=== PATIENT | male | born 1955 | race African-American/Black ===

== ENCOUNTER 2017-03-17 11:33 | Inpatient (IN) ==
[2017-03-17] MEDS ORDERED: hydrALAZINE 20 MG/1 ML VIAL IV STA ×2 (12:37→14:11)
[2017-03-17] MEDS ORDERED: METOPROLOL TARTRATE 5 MG/5 ML VIAL IV STA (12:37)
[2017-03-17] MEDS ORDERED: METOPROLOL TARTRATE 5 MG/5 ML VIAL IV ONE (13:22)
[2017-03-17] MEDS ORDERED: hydrALAZINE 20 MG/1 ML VIAL ONE (13:22)
[2017-03-17 13:47] LABS: Basophils % 0.1 % (0.0-0.8); Eosinophils # 0.1 10*3/uL (0.0-0.87); Hematocrit 34.3 VOL% (42.0-52.0); Hemoglobin 11.6 GM/DL (14.0-18.0); Immature Granulocytes % 0.4 %; Immature Granulocytes Absolute 0.03 #; Lymphocytes # 0.7 10*3/uL (1.4-4.0); Lymphocytes % 9.1 % (21.2-54.2); Mean Corpuscular HGB Conc 33.8 GM/DL (32-36); Mean Corpuscular Hemoglobin 32 PG (27-34); Mean Corpuscular Volume 94.5 FL (87-102); Monocytes # 1.1 10*3/uL (0.11-0.8); Monocytes % 15.3 % (1.7-12.7); Neutrophils # 5.3 10*3/uL (1.4-7.4); Neutrophils % 74.1 % (38.7-73.9); Platelet Count 240 T/CUMM (130-400); Red Blood Count 3.63 MC/CUMM (3.8-5.5); Red Cell Distribution Width 13.8 % (9.3-17.3); White Blood Count 7.2 T/CUMM (4-12)
[2017-03-17 14:11] LABS: Albumin 3.4 G/DL (3.4-5.0); Bilirubin,Total 0.5 MG/DL (0.2-1.0); Calcium 9.1 MG/DL (8.5-10.1); Osmolality,Calculated 270.8 MOS/KG (273-304); Potassium 3.9 MMOL/L (3.5-5.1); Total Protein 8.1 G/DL (6.4-8.3)
[2017-03-17] MEDS ORDERED: HYDROmorphone 2 MG/1 ML VIAL IV STA (16:32)
[2017-03-17] MEDS ORDERED: HYDROmorphone 2 MG/1 ML VIAL ONE (16:38)
[2017-03-17] MEDS ORDERED: niCARdipine 25 MG/10 ML VIAL IV ONE (16:38)
[2017-03-17] MEDS: niCARdipine INJ 25 MG in SODIUM CHLORIDE 0.9% 240 ML IV SCH ×2 (16:48→22:22)
[2017-03-17] MEDS ORDERED: BISACODYL 5 MG TABLET PO PRN (18:37)
[2017-03-17] MEDS ORDERED: ACETAMINOPHEN 325 MG TABLET PO PRN (18:37)
[2017-03-17] MEDS ORDERED: LACTULOSE 20 GM/30 ML UDCUP PO PRN (18:37)
[2017-03-17] MEDS ORDERED: ZALEPLON 5 MG CAPSULE PO PRN (18:37)
[2017-03-17] MEDS ORDERED: niCARdipine INJ 25 MG in SODIUM CHLORIDE 0.9% 240 ML IV SCH (18:37)
[2017-03-17] MEDS: THIAMINE 100 MG TABLET PO SCH (18:55)
[2017-03-17] MEDS: FOLIC ACID 1 MG TABLET PO SCH (18:55)
[2017-03-17] MEDS: amLODIPine 10 MG TABLET PO SCH (18:55)
[2017-03-17 19:07] LABS: PT Patient Result 10.2 SECS; Partial Thromboplastin Time 31.8 SECS (0-40)
[2017-03-17] MEDS: CARVEDILOL 12.5 MG TABLET PO SCH (20:28)
[2017-03-17] MEDS: ENOXAPARIN 40 MG/0.4 ML SYRINGE SUBCUT SCH (20:28)
[2017-03-17] MEDS: NICOTINE 21 MG/24 HR PATCH TRANSDERM SCH (20:29)
[2017-03-18] MEDS: THIAMINE 100 MG TABLET PO SCH (08:24)
[2017-03-18] MEDS: CARVEDILOL 12.5 MG TABLET PO SCH (08:24)
[2017-03-18] MEDS: amLODIPine 10 MG TABLET PO SCH (08:24)
[2017-03-18] MEDS: PANTOPRAZOLE 40 MG TABLET PO SCH (08:24)
[2017-03-18] MEDS: FOLIC ACID 1 MG TABLET PO SCH (08:25)
[2017-03-18] MEDS ORDERED: hydrALAZINE 20 MG/1 ML VIAL IV PRN (08:46)
[2017-03-18] MEDS: CYCLOBENZAPRINE 10 MG TABLET PO PRN ×2 (08:59→20:12)
[2017-03-18] MEDS ORDERED: CARVEDILOL 12.5 MG TABLET PO ONE (09:00)
[2017-03-18] MEDS: CARVEDILOL 25 MG TABLET PO SCH ×2 (12:00→20:13)
[2017-03-18] MEDS: ENOXAPARIN 40 MG/0.4 ML SYRINGE SUBCUT SCH (20:13)
[2017-03-18] MEDS: NICOTINE 21 MG/24 HR PATCH TRANSDERM SCH (20:15)
[2017-03-18 22:24] LABS: Apearance,Urine CLEAR (Clear); Bilirubin,Urine Negative (Negative); Blood, Urine Moderate mg/dL (Negative); Glucose,Urine (UA) Negative (Negative); Hyaline Casts,Urine 2 /LPF (0-3); Ketones,Urine Negative (Negative); Mucus,Urine Occasional /LPF (Occasional); Nitrite,Urine Negative (Negative); Protein,Urine Negative; RBC,Urine 2 /HPF (0-4); Squamous Epithelial Cell,Urine Occasional /HPF (0-10); Urine Color Yellow (Yellow); Urine Specific Gravity 1.024 (1.001-1.035); WBC,Urine 1 /HPF (0-6)
[2017-03-19] MEDS: THIAMINE 100 MG TABLET PO SCH (08:55)
[2017-03-19] MEDS: PANTOPRAZOLE 40 MG TABLET PO SCH (08:55)
[2017-03-19] MEDS: amLODIPine 10 MG TABLET PO SCH (08:55)
[2017-03-19] MEDS: CARVEDILOL 25 MG TABLET PO SCH (08:55)
[2017-03-19] MEDS: FOLIC ACID 1 MG TABLET PO SCH (08:55)
[2017-03-19] MEDS: CYCLOBENZAPRINE 10 MG TABLET PO PRN (08:55)
[2017-03-19] MEDS ORDERED: CYCLOBENZAPRINE 10 MG TABLET PO SCH (15:00)
[2017-03-19 16:57] VITALS: BP 154/85
== END 2017-03-19 17:00 | disposition home or self-care (01) | DRG 305 ==
LOC: N.ED 11:33 → N.EDINP 15:30 → N.CC 18:30 → N.4E 03-18 15:05
PROVIDERS: ADMIT Internal Medicine; ATTEND Internal Medicine

== ENCOUNTER 2021-01-19 10:16 | Inpatient (IN) ==
[2021-01-19] MEDS ORDERED: cefTRIAXone 1,000 MG in SODIUM CHLORIDE 0.9% 100 ML IV STA (10:46)
[2021-01-19 10:52] LABS: Basophils % 0.2 % (0.0-0.8); Eosinophils % 0.1 % (0.00-10.9); Hemoglobin 13.8 GM/DL (14.0-18.0); Immature Granulocytes % 1.3 %; Immature Granulocytes Absolute 0.22 #; Lymphocytes # 0.5 10*3/uL (1.4-4.0); Mean Corpuscular HGB Conc 32.1 GM/DL (32-36); Mean Corpuscular Volume 96.2 FL (87-102); Mean Platelet Volume 11.2 FL (9.6-12.0); Monocytes % 14.4 % (1.7-12.7); Platelet Count 347 T/CUMM (130-400); Red Blood Count 4.47 MC/CUMM (3.8-5.5); Red Cell Distribution Width 13.5 % (9.3-17.3); White Blood Count 16.8 T/CUMM (4-12)
[2021-01-19 11:14] LABS: Band Neutrophils 2 % (0-10); Lymphocytes 1 % (20-55); Platelet Estimate Adequate; Segmented Neutrophils 80 % (50-85); Total Cells Counted 100
[2021-01-19] MEDS ORDERED: SODIUM CHLORIDE 0.9% 1,100 ML IV ONE (12:07)
[2021-01-19] MEDS ORDERED: DEXTROSE 50% 25 GM/50 ML VIAL IV PRN (12:19)
[2021-01-19] MEDS ORDERED: GLUCAGON 1 MG VIAL IM PRN (12:19)
[2021-01-19] MEDS ORDERED: DOCUSATE SODIUM 100 MG CAPSULE PO PRN (12:19)
[2021-01-19] MEDS ORDERED: ONDANSETRON 4 MG/2 ML VIAL IV PRN (12:19)
[2021-01-19] MEDS ORDERED: LACTULOSE 20 GM/30 ML UDCUP PO PRN (12:19)
[2021-01-19 12:30] LABS: Alanine Aminotransferase 28 U/L (16-61); Albumin 2.2 G/DL (3.4-5.0); Alkaline Phosphatase 133 U/L (45-117); Aspartate Amino Transferase 37 U/L (0-37); Blood Urea Nitrogen 95 MG/DL (7-18); Calcium 10.3 MG/DL (8.5-10.1); Carbon Dioxide 21 MMOL/L (21-32); Estimated Glom Filtration Rate 26 ML/MIN; Ferritin 2619.6 ng/mL (26-388); Glucose 212 MG/DL (74-106); Osmolality,Calculated 304.1 MOS/KG (273-304); Potassium 4.3 MMOL/L (3.5-5.1); Sodium 135 MMOL/L (136-145); Total Protein 10.2 G/DL (6.4-8.2)
[2021-01-19] MEDS: AZITHROMYCIN INJ 500 MG in SODIUM CHLORIDE 0.9% 250 ML IV SCH (12:42)
[2021-01-19] MEDS ORDERED: ALBUTEROL/IPRATROPIUM 3 ML NEB RESP TX SCH (13:00)
[2021-01-19] MEDS: DEXTROSE 5% NACL 0.45% 1,000 ML IV SCH (14:40)
[2021-01-19] MEDS: DEXAMETHASONE 10 MG/1 ML VIAL IV SCH (16:00)
[2021-01-19] MEDS: BUDESONIDE/FORMOTEROL 160-4.5 INHALER 6 GM INH SCH ×2 (16:00→22:00)
[2021-01-19] MEDS: PANTOPRAZOLE 40 MG VIAL IV SCH (16:02)
[2021-01-19] MEDS ORDERED: LORazepam 2 MG/1 ML VIAL IV PRN (20:53)
[2021-01-19] MEDS: carvediloL 25 MG TABLET PO SCH (23:45)
[2021-01-20] MEDS: NICOTINE 21 MG/24 HR PATCH TRANSDERM SCH ×2 (00:39→08:41)
[2021-01-20] MEDS: DEXTROSE 5% NACL 0.45% 1,000 ML IV SCH ×3 (04:00→16:29)
[2021-01-20 06:02] LABS: Basophils % 0.3 % (0.0-0.8); Hematocrit 39.6 VOL% (42.0-52.0); Hemoglobin 12.9 GM/DL (14.0-18.0); Immature Granulocytes % 0.9 %; Immature Granulocytes Absolute 0.13 #; Lymphocytes # 0.4 10*3/uL (1.4-4.0); Lymphocytes % 2.5 % (21.2-54.2); Mean Corpuscular HGB Conc 32.6 GM/DL (32-36); Mean Corpuscular Volume 96.1 FL (87-102); Mean Platelet Volume 11.7 FL (9.6-12.0); Monocytes % 11.5 % (1.7-12.7); Neutrophils % 84.8 % (38.7-73.9); Platelet Count 322 T/CUMM (130-400); Red Blood Count 4.12 MC/CUMM (3.8-5.5); Red Cell Distribution Width 13.7 % (9.3-17.3); White Blood Count 14.5 T/CUMM (4-12)
[2021-01-20 06:23] LABS: Calcium 10.1 MG/DL (8.5-10.1); Osmolality,Calculated 306.5 MOS/KG (273-304); Potassium 4.9 MMOL/L (3.5-5.1)
[2021-01-20 06:32] LABS: Band Neutrophils 5 % (0-10); Lymphocytes 6 % (20-55); Platelet Estimate Adequate; Segmented Neutrophils 85 % (50-85); Total Cells Counted 100
[2021-01-20 06:42] LABS: Ferritin 2601.6 ng/mL (26-388)
[2021-01-20] MEDS: RIVAROXABAN 20 MG TABLET PO SCH ×2 (06:53→16:29)
[2021-01-20] MEDS: LEVOFLOXACIN INJ 500 MG/100 ML PREMIX IV SCH ×2 (07:08→09:16)
[2021-01-20] MEDS: DEXAMETHASONE 10 MG/1 ML VIAL IV SCH (08:40)
[2021-01-20] MEDS: carvediloL 25 MG TABLET PO SCH ×2 (08:40→21:26)
[2021-01-20] MEDS: PANTOPRAZOLE 40 MG VIAL IV SCH (08:40)
[2021-01-20] MEDS: BUDESONIDE/FORMOTEROL 160-4.5 INHALER 6 GM INH SCH ×2 (08:41→21:26)
[2021-01-20] MEDS: LORATADINE 10 MG TABLET PO SCH (08:41)
[2021-01-20] MEDS ORDERED: chlordiazePOXIDE 10 MG CAPSULE PO SCH (09:37)
[2021-01-20] MEDS: THIAMINE 100 MG TABLET PO SCH (10:31)
[2021-01-20] MEDS: FOLIC ACID 1 MG TABLET PO SCH (10:31)
[2021-01-20] MEDS: AZITHROMYCIN INJ 500 MG in SODIUM CHLORIDE 0.9% 250 ML IV SCH (13:14)
[2021-01-20] MEDS: chlordiazePOXIDE 25 MG CAPSULE PO SCH ×3 (13:15→21:26)
[2021-01-20] MEDS: CLINDAMYCIN INJ 600 MG/50 ML PREMIX IV SCH (16:29)
[2021-01-21] MEDS: CLINDAMYCIN INJ 600 MG/50 ML PREMIX IV SCH ×3 (00:15→16:44)
[2021-01-21] MEDS: DEXTROSE 5% NACL 0.45% 1,000 ML IV SCH ×2 (04:00→23:30)
[2021-01-21] MEDS: AZITHROMYCIN 250 MG TABLET PO SCH (10:04)
[2021-01-21] MEDS: THIAMINE 100 MG TABLET PO SCH (10:05)
[2021-01-21] MEDS: FOLIC ACID 1 MG TABLET PO SCH (10:05)
[2021-01-21] MEDS: LORATADINE 10 MG TABLET PO SCH (10:05)
[2021-01-21] MEDS: chlordiazePOXIDE 25 MG CAPSULE PO SCH ×2 (10:05→21:13)
[2021-01-21] MEDS: LEVOFLOXACIN 500 MG TABLET PO SCH (10:05)
[2021-01-21] MEDS: carvediloL 25 MG TABLET PO SCH ×2 (10:06→21:12)
[2021-01-21] MEDS: NICOTINE 21 MG/24 HR PATCH TRANSDERM SCH (10:06)
[2021-01-21] MEDS: DEXAMETHASONE 10 MG/1 ML VIAL IV SCH (10:09)
[2021-01-21] MEDS: BUDESONIDE/FORMOTEROL 160-4.5 INHALER 6 GM INH SCH ×2 (10:15→21:13)
[2021-01-21] MEDS: RIVAROXABAN 20 MG TABLET PO SCH (16:43)
[2021-01-22] MEDS: CLINDAMYCIN INJ 600 MG/50 ML PREMIX IV SCH ×3 (01:34→17:23)
[2021-01-22] MEDS: DEXTROSE 5% NACL 0.45% 1,000 ML IV SCH ×2 (03:00→18:08)
[2021-01-22] MEDS: PANTOPRAZOLE 40 MG TABLET PO SCH (06:29)
[2021-01-22 06:39] LABS: Basophils % 0.3 % (0.0-0.8); Eosinophils % 0.2 % (0.00-10.9); Hematocrit 35.1 VOL% (42.0-52.0); Hemoglobin 11.4 GM/DL (14.0-18.0); Immature Granulocytes % 3.9 %; Immature Granulocytes Absolute 0.53 #; Lymphocytes # 0.6 10*3/uL (1.4-4.0); Lymphocytes % 4.2 % (21.2-54.2); Mean Corpuscular HGB Conc 32.5 GM/DL (32-36); Mean Corpuscular Volume 94.6 FL (87-102); Mean Platelet Volume 11.1 FL (9.6-12.0); Monocytes % 12.2 % (1.7-12.7); Neutrophils % 79.2 % (38.7-73.9); Platelet Count 273 T/CUMM (130-400); Red Blood Count 3.71 MC/CUMM (3.8-5.5); White Blood Count 13.8 T/CUMM (4-12)
[2021-01-22 07:07] LABS: Calcium 8.6 MG/DL (8.5-10.1); Eosinophils 1 % (0-10); Hypochromasia Slight; Lymphocytes 2 % (20-55); Microcytosis Slight; Osmolality,Calculated 299.1 MOS/KG (273-304); Platelet Estimate Adequate; Potassium 4.4 MMOL/L (3.5-5.1); Segmented Neutrophils 86 % (50-85); Total Cells Counted 100
[2021-01-22 07:20] LABS: Ferritin 1874.9 ng/mL (26-388)
[2021-01-22] MEDS: NICOTINE 21 MG/24 HR PATCH TRANSDERM SCH (10:02)
[2021-01-22] MEDS: FOLIC ACID 1 MG TABLET PO SCH (10:04)
[2021-01-22] MEDS: LEVOFLOXACIN 500 MG TABLET PO SCH (10:05)
[2021-01-22] MEDS: AZITHROMYCIN 250 MG TABLET PO SCH (10:05)
[2021-01-22] MEDS: carvediloL 25 MG TABLET PO SCH ×2 (10:06→20:36)
[2021-01-22] MEDS: THIAMINE 100 MG TABLET PO SCH (10:06)
[2021-01-22] MEDS: LORATADINE 10 MG TABLET PO SCH (10:06)
[2021-01-22] MEDS: DEXAMETHASONE 10 MG/1 ML VIAL IV SCH (10:07)
[2021-01-22] MEDS: chlordiazePOXIDE 25 MG CAPSULE PO SCH ×2 (10:10→20:35)
[2021-01-22] MEDS: BUDESONIDE/FORMOTEROL 160-4.5 INHALER 6 GM INH SCH ×2 (10:10→20:34)
[2021-01-22 13:24] LABS: Bilirubin,Urine Negative (Negative); Blood, Urine Negative (Negative); Glucose,Urine (UA) Negative (Negative); Hyaline Casts,Urine 1 /LPF (0-3); Ketones,Urine Negative (Negative); Nitrite,Urine Negative (Negative); Protein,Urine Negative; RBC,Urine 1 /HPF (0-4); Urine Appearance CLEAR (Clear); Urine Color Yellow (Yellow); Urine Specific Gravity 1.014 (1.001-1.035)
[2021-01-22] MEDS: RIVAROXABAN 20 MG TABLET PO SCH (17:24)
[2021-01-23] MEDS: CLINDAMYCIN INJ 600 MG/50 ML PREMIX IV SCH ×2 (00:15→09:05)
[2021-01-23 05:17] LABS: Basophils # 0.1 10*3/uL (0.0-0.2); Basophils % 0.4 % (0.0-0.8); Eosinophils # 0.1 10*3/uL (0.0-0.87); Eosinophils % 0.6 % (0.00-10.9); Hematocrit 35.7 VOL% (42.0-52.0); Hemoglobin 11.4 GM/DL (14.0-18.0); Immature Granulocytes % 4.9 %; Immature Granulocytes Absolute 0.62 #; Lymphocytes # 0.6 10*3/uL (1.4-4.0); Lymphocytes % 4.8 % (21.2-54.2); Mean Corpuscular HGB Conc 31.9 GM/DL (32-36); Mean Corpuscular Volume 96.5 FL (87-102); Mean Platelet Volume 11.9 FL (9.6-12.0); Monocytes % 11.1 % (1.7-12.7); Neutrophils % 78.2 % (38.7-73.9); Platelet Count 231 T/CUMM (130-400); Red Cell Distribution Width 14.3 % (9.3-17.3); White Blood Count 12.6 T/CUMM (4-12)
[2021-01-23 05:40] LABS: Calcium 8.3 MG/DL (8.5-10.1); Osmolality,Calculated 290.4 MOS/KG (273-304); Potassium 4.3 MMOL/L (3.5-5.1)
[2021-01-23 05:54] LABS: Ferritin 1094.5 ng/mL (26-388)
[2021-01-23 06:17] LABS: Band Neutrophils 1 % (0-10); Eosinophils 1 % (0-10); Hypochromasia 1+; Lymphocytes 3 % (20-55); Metamyelocytes 1 %; Segmented Neutrophils 84 % (50-85); Total Cells Counted 100
[2021-01-23 06:18] LABS: Macrocytosis 1+; Platelet Estimate Normal; Target Cells Slight
[2021-01-23] MEDS: DEXTROSE 5% NACL 0.45% 1,000 ML IV SCH (06:48)
[2021-01-23] MEDS: PANTOPRAZOLE 40 MG TABLET PO SCH (06:49)
[2021-01-23] MEDS: LEVOFLOXACIN 500 MG TABLET PO SCH (09:03)
[2021-01-23] MEDS: NICOTINE 21 MG/24 HR PATCH TRANSDERM SCH (09:04)
[2021-01-23] MEDS: FOLIC ACID 1 MG TABLET PO SCH (09:05)
[2021-01-23] MEDS: chlordiazePOXIDE 25 MG CAPSULE PO SCH (09:05)
[2021-01-23] MEDS: LORATADINE 10 MG TABLET PO SCH (09:05)
[2021-01-23] MEDS: carvediloL 25 MG TABLET PO SCH (09:05)
[2021-01-23] MEDS: THIAMINE 100 MG TABLET PO SCH (09:05)
[2021-01-23] MEDS: BUDESONIDE/FORMOTEROL 160-4.5 INHALER 6 GM INH SCH (09:07)
[2021-01-23] MEDS: DEXAMETHASONE 10 MG/1 ML VIAL IV SCH (09:07)
[2021-01-23] MEDS: AZITHROMYCIN 250 MG TABLET PO SCH (09:27)
[2021-01-23 13:10] VITALS: BP 151/84
== END 2021-01-23 13:08 | disposition home or self-care (01) | DRG 871 ==
LOC: N.ED 10:16 → SUATTDRO 12:18 → N.EDINP 12:18 → N.5E 13:08 → N.2E 14:16
PROVIDERS: ADMIT Hospitalist; ATTEND Phlebology